=== PATIENT | female | born 1995 | race African-American/Black ===

== ENCOUNTER 2016-12-08 12:29 | Emergency (ER) | payer OTHER ==
[~2016-12-08] VITALS: Ht 162.6 cm; Wt 59.0 kg
[2016-12-08 12:31] VITALS: BP 150/82; PULSE 64; RESP 16; TEMP 98.9; O2SAT 99
[2016-12-08 13:28] LABS: AUTOMATED NEUTROPHIL # 3.3 TH/MM3 (1.8-7.7); BASOPHIL % 0.4 % (0.0-2.0); EOSINOPHIL # 0.1 TH/MM3 (0-0.4); EOSINOPHIL % 1.4 % (0.0-4.0); HEMATOCRIT 39.8 % (35.0-46.0); HEMO FLAGS DIFF FINAL; LYMPH % 29.2 % (9.0-44.0); LYMPHOCYTE # 1.6 TH/MM3 (1.0-4.8); MEAN CELL VOLUME 91.9 FL (80.0-100.0); MEAN CORPUSCULAR HEMOGLOBIN 30.4 PG (27.0-34.0); MONO % 9.8 % (0.0-8.0); NEUT % 59.2 % (16.0-70.0); PLATELET COUNT 260 TH/MM3 (150-450); RED BLOOD COUNT 4.33 MIL/MM3 (4.00-5.30); RED CELL DISTRIBUTION WIDTH 13.2 % (11.6-17.2); WHITE BLOOD COUNT 5.5 TH/MM3 (4.0-11.0)
[2016-12-08 13:35] LABS: BACTERIA, URINE RARE /hpf; BLOOD, URINE TRACE (NEG); COMMENT (UR) CULT NOT INDICATED; CULTURE IF INDICATED CULT NOT INDICATED; GLUCOSE,URINE NEG (NEG); KETONE, URINE NEG (NEG); NITRITE,URINE NEG (NEG); SQUAMOUS EPITHELIAL CELL URINE 1 /hpf (0-5); URINE COLOR LIGHT-YELLOW (YELLW/STRAW)
[2016-12-08 13:48] LABS: BICARBONATE 27.7 MEQ/L (21.0-32.0); POTASSIUM 3.8 MEQ/L (3.5-5.1)
--- NOTE | 2016-12-08 14:24 | PD ---
HPI Chief Complaint: Abdominal Pain Time Seen by Provider: 12:50 Travel History International Travel<30 days: No Contact w/Intl Traveler<30days: No Traveled to known affect area: No History of Present Illness HPI Patient is a 21-year-old female comes in complaining of lower abdominal pain. She says she has been getting the pains on and off for a little while now, but they have been more persistent the past few days. She says the pains are in her lower abdomen. She says she had her menstrual period on November 25, but she had pain yesterday and then started bleeding again, which worried her. She says that she is worried because she had normal periods and now for the past few months they have been irregular. She denies nausea or vomiting. She denies vaginal discharge. She is having unprotected sex with one partner. She denies fever or chills. She denies any dysuria. PFSH Past Medical History Cardiovascular Problems: Yes (Mitral valve regurgitation) Diminished Hearing: No Tetanus Vaccination: < 5 Years Influenza Vaccination: No ?: Unknown LMP: 11/24/16 : 0 Para: 0 Miscarriage: 0 : 0 Past Surgical History Surgical History: No Previous Surgery Social History Alcohol Use: Yes (ocassionally) Tobacco Use: Yes (4 cigarrette per day) Substance Use: No Allergies-Medications (Allergen,Severity, Reaction): Coded Allergies: No Known Allergies (Unverified , 12/08/16) Reported Meds & Prescriptions Reported Meds & Active Scripts Active No Active Prescriptions or Reported Medications Review of Systems Except as stated in HPI: all other systems reviewed are Neg General / Constitutional: No: Fever, Chills HENT: No: Headaches, Lightheadedness Cardiovascular: No: Chest Pain or Discomfort Respiratory: No: Shortness of Breath Gastrointestinal: Positive: Abdominal Pain, No: Nausea, Vomiting Genitourinary: Positive: Vaginal Bleeding Skin: No Rash, No Change in Pigmentation Neurologic: No: Weakness, Dizziness Physical Exam Narrative GENERAL: Awake and alert, in no acute distress. SKIN: Focused skin assessment warm/dry. HEAD: Atraumatic. Normocephalic. EYES: Pupils equal and round. No scleral icterus. ENT: Mucous membranes pink and moist. NECK: Trachea midline. No JVD. CARDIOVASCULAR: Regular rate and rhythm. No murmur appreciated. RESPIRATORY: No accessory muscle use. Clear to auscultation. Breath sounds equal bilaterally. GASTROINTESTINAL: Abdomen soft, non-tender, nondistended. No CVA tenderness. : Performed in the presence of a female nurse. Small amount of vaginal bleeding. No CMT. No cervical lesions. MUSCULOSKELETAL: No obvious deformities. No clubbing. No cyanosis. No edema. NEUROLOGICAL: Awake and alert. No obvious cranial nerve deficits. Motor grossly within normal limits. Normal speech. PSYCHIATRIC: Appropriate mood and affect; insight and judgment normal. Data Data Last Documented VS Vital Signs Date Time Temp Pulse Resp B/P Pulse Ox O2 Delivery O2 Flow Rate FiO2 12/08/16 14:41 97.8 78 16 110/77 100 12/08/16 12:31 Room Air Orders Wet Prep Profile (12/08/16 13:06) Gc And Chlamydia Pcr (12/08/16 13:06) Complete Blood Count With Diff (12/08/16 13:06) Basic Metabolic Panel (Bmp) (12/08/16 13:06) Urinalysis - C+S If Indicated (12/08/16 13:07) Ed Urine Pregnancytest Poc (12/08/16 13:07) Labs Laboratory Tests Test 12/08/16 12/08/16 12:50 13:00 Urine Color LIGHT-YELLOW Urine Turbidity CLEAR Urine pH 6.0 Urine Specific [place] 1.003 Urine Protein NEG mg/dL Urine Glucose (UA) NEG mg/dL Urine Ketones NEG mg/dL Urine Occult Blood TRACE Urine Nitrite NEG Urine Bilirubin NEG Urine Urobilinogen LESS THAN 2.0 MG/DL Urine Leukocyte Esterase TRACE Urine RBC 1 /hpf Urine WBC 2 /hpf Urine Squamous Epithelial 1 /hpf Cells Urine Bacteria RARE /hpf Microscopic Urinalysis Comment CULT NOT INDICATED White Blood Count 5.5 TH/MM3 Red Blood Count 4.33 MIL/MM3 Hemoglobin 13.2 GM/DL Hematocrit 39.8 % Mean Corpuscular Volume 91.9 FL Mean Corpuscular Hemoglobin 30.4 PG Mean Corpuscular Hemoglobin 33.0 % Concent Red Cell Distribution Width 13.2 % Platelet Count 260 TH/MM3 Mean Platelet Volume 9.7 FL Neutrophils (%) (Auto) 59.2 % Lymphocytes (%) (Auto) 29.2 % Monocytes (%) (Auto) 9.8 % Eosinophils (%) (Auto) 1.4 % Basophils (%) (Auto) 0.4 % Neutrophils # (Auto) 3.3 TH/MM3 Lymphocytes # (Auto) 1.6 TH/MM3 Monocytes # (Auto) 0.5 TH/MM3 Eosinophils # (Auto) 0.1 TH/MM3 Basophils # (Auto) 0.0 TH/MM3 CBC Comment DIFF FINAL Differential Comment Clue Cells (Wet Prep) NONE SEEN Vaginal Trichomonas (Wet Prep) NONE SEEN Vaginal Yeast (Wet Prep) NONE SEEN Sodium Level 139 MEQ/L Potassium Level 3.8 MEQ/L Chloride Level 106 MEQ/L Carbon Dioxide Level 27.7 MEQ/L Anion Gap 5 MEQ/L Blood Urea Nitrogen 5 MG/DL Creatinine 0.84 MG/DL Estimat Glomerular Filtration 104 ML/MIN Rate Random Glucose 86 MG/DL Calcium Level 8.8 MG/DL Chlamydia trachomatis DNA DETECTED (PCR) Neisseria gonorrhoeae DNA NOT DETECTED (PCR) MDM Medical Decision Making Medical Screen Exam Complete: Yes Emergency Medical Condition: Yes Differential Diagnosis UTI versus mittelschmerz syndrome versus dysfunctional uterine bleeding versus GC and chlamydia Narrative Course Patient is a 21-year-old female comes in complaining of lower abdominal pain. Exam shows no abdominal tenderness on palpation. Pelvic exam shows mild amount of bleeding, no other abnormalities. Swab sent for wet prep shows no acute abnormalities. Swab sent test for GC and chlamydia. Urine test is negative. Patient is having no pain at this time therefore does not require pain medicine. Patient advised she should follow-up with [facility] regarding her irregular periods. Advised to use protection when having intercourse. Advised to return to the ED as needed for any worsening symptoms. Diagnosis Primary Impression: Pelvic pain Patient Instructions: General Instructions, Pelvic Pain in Women (ED) Additional Instructions: Take Ibuprofen as needed for pain. Follow up with gynecology. Return to the ED as needed for any worsening symptoms. Scripts No Active Prescriptions or Reported Meds Disposition: 01 DISCHARGE HOME Condition: Stable Sheree Nguyen MD December 08, 2016 14:24
[2016-12-08 14:41] VITALS: BP 110/77; TEMP 97.8
[2016-12-08 16:03] LABS: CHLAMYDIA PCR DETECTED (NOT DETECT); NEISSERIA PCR NOT DETECTED (NOT DETECT)
== END 2016-12-08 14:32 | disposition home or self-care (01) ==
LOC: NEPC 12:29
DX: R10.2 Pelvic and perineal pain (principal)
CPT/HCPCS: 80048; 81001; 84703; 85025; 87210; 87491; 87591; 99284